=== PATIENT | male | born 1990 | race Caucasian/White ===

== ENCOUNTER 2018-05-18 00:28 | Emergency (ER) | payer BC ==
[~2018-05-18] VITALS: Ht 177.8 cm; Wt 117.3 kg
[2018-05-18 00:35] VITALS: Ht 177.8 cm; Wt 117.3 kg
[2018-05-18 01:35] VITALS: BP 144/76
== END 2018-05-18 01:35 | disposition home or self-care (01) ==
LOC: ED 00:28
DX: S01.511A Laceration without foreign body of lip, initial encounter (principal); F10.129 Alcohol abuse with intoxication, unspecified; Y90.9 Presence of alcohol in blood, level not specified; X58.XXXA Exposure to other specified factors, initial encounter; Y93.89 Activity, other specified; Y92.89 Other specified places as the place of occurrence of the external cause; Y99.8 Other external cause status
CPT/HCPCS: J2001